=== PATIENT | female | born 2000 | race Caucasian/White ===

== ENCOUNTER 2022-01-27 16:50 | Emergency (ER) | payer OTHER, SELFPAY ==
[2022-01-27 19:18] VITALS: BP 122/65; PULSE 88; RESP 16; TEMP 36; O2SAT 100; BMI 25.7
[2022-01-27 22:06] LABS: Appearance Urine Clear; Color Urine Yellow; Glucose Urine UA Negative (Negative); Leukocyte Esterase Urine Moderate (2+) (Negative); Nitrite Urine Negative (Negative); Specific Gravity - Urine 1.025 (1.005-1.025); UMIC TRIGGER UACC YES; Urine Blood Negative (Negative); Urine Ketones Negative (Negative); Urine Protein Negative (Neg-Trace)
[2022-01-27 22:08] LABS: Bacteria Urine 1+ (None Seen); Hyaline Casts Urine 0-2 /LPF (0-2); UACC Culture Trigger YES
[2022-01-27 22:19] LABS: RBC Urine 0-2 /HPF (0-2)
== END 2022-01-27 22:52 | disposition left against medical advice (07) ==
PROVIDERS: Emergency Provider Emergency Medicine
DX: N89.8 Other specified noninflammatory disorders of vagina (principal)
CPT/HCPCS: 81001; 81003; 87086; 99282

== ENCOUNTER 2022-01-29 11:42 | Outpatient (REF) | payer OTHER, SELFPAY ==
[2022-01-29 18:14] LABS: CT PCR DETECTED (Not Detect.); NG PCR NOT DETECTED (Not Detect.)
[2022-01-30 13:01] LABS: BV Int Neg Control Negative (Negative); BV Int Pos Control Positive (Positive)
== END 2022-01-29 11:43 | disposition home or self-care (01) ==
LOC: HO.LNP 11:42
PROVIDERS: Visit Provider Obstetrics & Gynecology
DX: N90.89 Other specified noninflammatory disorders of vulva and perineum (principal)
CPT/HCPCS: 87480; 87491; 87510; 87591; 87660; 99202

== ENCOUNTER 2022-01-30 14:27 | Outpatient (REF) | payer OTHER, SELFPAY ==
[2022-01-30 15:36] LABS: Syphilis Screen Nonreactive (Nonreactive)
[2022-02-02 08:13] LABS: HBsAGNum1 0.26 S/CO (0.00-0.99); HIV AB/AG Nonreactive (Nonreactive); HIV Num 1 0.07 S/CO (0.00-0.99); Hepatitis B Surface Antigen Negative (Negative); ~Hepatitis C Antibody Nonreactive (Nonreactive)
== END 2022-01-30 14:28 | disposition home or self-care (01) ==
LOC: HO.LAB 14:27
PROVIDERS: Visit Provider Obstetrics & Gynecology
DX: Z11.4 Encounter for screening for human immunodeficiency virus [HIV] (principal); A74.9 Chlamydial infection, unspecified
CPT/HCPCS: 36415; 86780; 86803; 87340; 87389

== ENCOUNTER 2022-02-10 15:08 | Outpatient (REF) | payer OTHER, SELFPAY ==
[2022-02-10 18:42] LABS: CT PCR NOT DETECTED (Not Detect.); NG PCR NOT DETECTED (Not Detect.)
== END 2022-02-10 15:09 | disposition home or self-care (01) ==
LOC: HO.LNP 15:08
PROVIDERS: Visit Provider Obstetrics & Gynecology
DX: A74.9 Chlamydial infection, unspecified (principal); N90.89 Other specified noninflammatory disorders of vulva and perineum; Z20.2 Contact with and (suspected) exposure to infections with a predominantly sexual mode of transmission
CPT/HCPCS: 56605; 87491; 87591; 88305; 99212

== ENCOUNTER → 2022-05-20 14:57 | Outpatient (BNVA) | payer BC, SELFPAY | PROVIDERS: Visit Provider Obstetrics & Gynecology | DX: N90.0 Mild vulvar dysplasia (principal) ==

== ENCOUNTER 2022-11-25 10:08 | Outpatient (REF) | payer BC, SELFPAY ==
[2022-11-26 12:37] LABS: BV Int Neg Control Negative (Negative); BV Int Pos Control Positive (Positive)
[2022-11-26 13:38] LABS: CT PCR NOT DETECTED (Not Detect.); NG PCR NOT DETECTED (Not Detect.)
== END 2022-11-25 10:09 | disposition home or self-care (01) ==
LOC: HO.LAB 10:08
PROVIDERS: Visit Provider Advanced Practice Midwife
DX: Z01.419 Encounter for gynecological examination (general) (routine) without abnormal findings (principal); N89.8 Other specified noninflammatory disorders of vagina; S30.824A Blister (nonthermal) of vagina and vulva, initial encounter; X58.XXXA Exposure to other specified factors, initial encounter; Y93.9 Activity, unspecified; Y92.9 Unspecified place or not applicable; Y99.9 Unspecified external cause status; Z20.2 Contact with and (suspected) exposure to infections with a predominantly sexual mode of transmission
CPT/HCPCS: 0353U; 36415; 87255; 87480; 87510; 87660

== ENCOUNTER 2022-11-25 10:08 | Outpatient (AMB) | payer BC, SELFPAY ==
[2022-11-25 10:12] VITALS: BP 120/80; BMI 26.9
--- NOTE | 2022-11-25 10:12 | MHC.OFFVIS ---
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 Scribed for DAMION Anthony by Brittany Holly medical numerical control operator, on 11/25/2022 at 10:34 am EST. Clinical Orthoptist: Clinical Orthoptist Present (Adela) Allergies No Known Allergies Allergy (Verified 11/25/22 10:12) Is last menstrual period known: Yes Last menstrual period: 11/14/22 HPI HPI Comments History of Present Illness Details She is here with complaints of blisters on labia near past surgery area. Denies any vaginal pain and discharge. Currently sexually active with same partner. Uses condoms as BC. Had Nexplanon in the past with negative results-irregular bleeding. STD testing offered; she accepts. Denies family hx of breast, colon and ovarian cancer. Never had a pap smear/AG. Desires AG today. [facility] Medical History (Updated 11/25/22 @ 10:27 by MORRO Carlin) PCOS (polycystic ovarian syndrome) Social History (Updated 11/25/22 @ 10:27 by MORRO Carlin) Alcohol intake: current Alcohol intake frequency: a few times a month Patient Tobacco Use Status: Never used Tobacco Sexual orientation: Straight/Heterosexual Gender identity: Female Female Reproductive History Menstrual Duration of menses: 3-5 days Date of last menstrual period: 11/14/22 control method: none Total pregnancies: 1 Ab induced: 1 Physical Exam Vital Signs: Last Vital Signs BP 120/80 11/25/22 10:12 BMI result Body Mass Index 26.9 Const General: cooperative, healthy appearing, comfortable, no acute distress, well developed, alert, awake and Physically active Neck Neck: Yes normal visual inspection and Yes full ROM Thyroid: Thyroid normal Lymphatic: no lymphadenopathy noted Chest Chest palpation & inspection: normal inspection of the chest Breast/axilla inspection: normal inspection of the breasts and normal inspection of the axillae Breast/axilla palpation: normal palpation of the breasts and normal palpation of the axillae Resp Effort & Inspection: normal respiratory effort Auscultation: clear to auscultation bilaterally GI Inspection: Yes normal to inspection Palpation (GI): Soft to palpation Percussion: Yes normal to percussion Auscultation: normal bowel sounds Other: skin appears abraided on the left upper inner labial minora at the sulcus, membranous covered-healing tissue, not ulcerative. General: Yes bladder normal to palpation External Female Exam: normal appearance of the urethra and lesion Speculum Exam - Vagina: normal palpation, normal vaginal discharge and lesion Speculum Exam - Cervix: normal appearance of the cervix and normal palpation Bimanual exam- vagina & uterus: normal bimanual exam, normal palpation, uterine size normal, bladder normal to palpation, normal palpation and uterine shape normal Bimanual Exam- Adnexa, other: normal adnexae and no masses Skin Rashes: no rashes Extrem General: Yes normal to inspection and Yes full ROM Right upper extremity: normal to inspection and full ROM Left upper extremity: normal to inspection and full ROM Psych Appearance: grossly normal Speech and movement: Normal speech and movement present Attitude: cooperative Thought process: Normal thought process present Thought content: Normal thought content present Assessment & Plan Assessment & Plan (1) Vaginal lesion: Code(s): N89.8 - Other specified noninflammatory disorders of vagina Plan: Discussed: Current recommendations for pap smears per ASCCP guidelines Breast awareness and periodic self breast exams. Maintaining a healthy lifestyle including a well balanced diet and routine exercise. Encouraged to use condoms for STD and prevention. Encouraged patient to sign up for patient portal. Release of records and PCOS work up. Advised to clean with water, mild soaps to the area, dry well, wear cotton underwear and apply cool cloth if irritated. No sexual intimacy for now. Viral culture, GC/CT and BV panel done today. Await results and treat accordingly. All of her questions and concerns were addressed to the best of my ability and shared decision making. She is agreeable to plan of care. (2) Encounter for well woman exam: Code(s): Z01.419 - Encounter for gynecological examination (general) (routine) without abnormal findings Orders: Orders Bacterial Vaginosis Panel Today N89.8 - Other specified noninflammatory disorders of vagina CT NG by PCR Today N89.8 - Other specified noninflammatory disorders of vagina Pap Smear Today Z01.419 - Encounter for gynecological examination (general) (routine) without abnormal findings Herpes Virus Culture rflx Type Today N89.8 - Other specified noninflammatory disorders of vagina Coding Level of Care Code Est Pt Prev Care 18-39y(98234) Diagnoses Vaginal lesion N89.8 Encounter for well woman exam Z01.419
== END 2022-11-25 10:57 | disposition home or self-care (01) ==
LOC: HO.HWS 10:08
PROVIDERS: Visit Provider Advanced Practice Midwife
DX: Z01.419 Encounter for gynecological examination (general) (routine) without abnormal findings (principal); N89.8 Other specified noninflammatory disorders of vagina
CPT/HCPCS: 99395

== ENCOUNTER 2022-11-25 10:47 | Outpatient (REF) | payer BC, SELFPAY | END 2022-11-25 10:48 | disposition home or self-care (01) | LOC: HO.LNP 10:47 | PROVIDERS: Visit Provider Advanced Practice Midwife | DX: Z01.419 Encounter for gynecological examination (general) (routine) without abnormal findings (principal) | CPT/HCPCS: 88142 ==

== ENCOUNTER 2022-12-08 08:38 | Outpatient (AMB) | payer BC, SELFPAY ==
--- NOTE | 2022-12-08 08:48 | MHC.OFFVIS ---
Intake Vital Signs 12/08/22 08:53 Height 5 ft 3 in Weight 152 lb BMI 26.9 BP 120/70 Intake Visit Reasons: follow up test results Intake Note: The patient agreed to use of a medical billing representative during this encounter. Scribed for DAMION Anthony by Brittany Holly medical billing representative, on 12/08/2022 at 9:00 am EST. Allergies No Known Allergies Allergy (Verified 12/08/22 08:48) Is last menstrual period known: Yes Last menstrual period: 11/14/22 HPI HPI Comments History of Present Illness Details She is here to discuss test results on HSV culture. She has no current symptoms. Reports her partner has HSV and he is on viral suppression therapy. STD blood work offered; she declines due to having it done recently-01/2022-negative. [facility] Medical History PCOS (polycystic ovarian syndrome) Social History Alcohol intake: current Alcohol intake frequency: a few times a month Patient Tobacco Use Status: Never used Tobacco Sexual orientation: Straight/Heterosexual Gender identity: Female Female Reproductive History Menstrual Date of last menstrual period: 11/14/22 Physical Exam Vital Signs: Last Vital Signs BP 120/70 12/08/22 08:53 BMI result Body Mass Index 26.9 Const General: cooperative, healthy appearing, comfortable, no acute distress, well developed, alert and awake Results Reviewed Results Reviewed: HERPES SIMPLEX VIRUS CULTURE W/RFL TO TYPING Micro Number: [id number] Test Status: Final Specimen Source: Not given Specimen Quality: Adequate HSV Culture: Isolated HSV TYPE 2: Isolated HSV TYPE 1: The incidence of HSV 1 infection in the presence of HSV 2 (dual infection) is extremely rare. Therefore, testing for HSV 1 was not performed. Assessment & Plan Assessment & Plan (1) Encounter to discuss test results: Code(s): Z71.2 - Person consulting for explanation of examination or test findings Plan: Discussed: HSV Culture: Isolated HSV TYPE 2: Isolated. Rx sent to pharmacy with instructions. Episodic therapy. Immune system, stressors. Preventative therapy in future if indicated. Follow up AG or prn. All of her questions and concerns were addressed to the best of my ability and shared decision making. She is agreeable to plan of care. Medications: New valacyclovir (Valtrex) take with onset on of symptoms, take for three days, may repeat dosing per episode prn 500 mg PO BID 30 tabs 1RF Coding Level of Care Code Est Pt Level 3 (85519) Diagnoses Encounter to discuss test results Z71.2
[2022-12-08 08:53] VITALS: BP 120/70; BMI 26.9
== END 2022-12-08 09:06 | disposition home or self-care (01) ==
LOC: HO.HWS 08:38
PROVIDERS: Visit Provider Advanced Practice Midwife
DX: Z71.2 Person consulting for explanation of examination or test findings (principal)
CPT/HCPCS: 99213

== ENCOUNTER → 2022-12-08 08:38 | Outpatient (BNVA) | payer BC, SELFPAY | PROVIDERS: Visit Provider Advanced Practice Midwife ==

== ENCOUNTER 2023-05-05 14:42 | Outpatient (REF) | payer BC, SELFPAY ==
[2023-05-06 11:44] LABS: CT PCR NOT DETECTED (Not Detect.); NG PCR NOT DETECTED (Not Detect.)
[2023-05-06 12:18] LABS: BV Int Neg Control Negative (Negative); BV Int Pos Control Positive (Positive)
== END 2023-05-05 14:43 | disposition home or self-care (01) ==
LOC: HO.LAB 14:42
PROVIDERS: Visit Provider Advanced Practice Midwife
DX: Z30.09 Encounter for other general counseling and advice on contraception (principal); Z20.2 Contact with and (suspected) exposure to infections with a predominantly sexual mode of transmission
CPT/HCPCS: 0353U; 87480; 87510; 87660

== ENCOUNTER 2023-05-05 14:42 | Outpatient (AMB) | payer BC, SELFPAY ==
[2023-05-05 14:45] VITALS: BP 120/80; BMI 27.6
--- NOTE | 2023-05-05 14:45 | MHC.OFFVIS ---
Intake Vital Signs 05/05/23 14:45 Height 5 ft 3 in Weight 156 lb BMI 27.6 BP 120/80 Intake Visit Reasons: control consult chaya Chapman Allergies No Known Allergies Allergy (Verified 05/05/23 14:45) Is last menstrual period known: Yes Last menstrual period: 04/08/23 HPI HPI Comments History of Present Illness Details Is here for control consult. She is interested in the ParaGard IUD. She is currently having regular cycles while on metformin. History of PCOS. She reports her periods are heavy and painful at times and she is reconsidering the brand of IUD to something different. [facility] Medical History PCOS (polycystic ovarian syndrome) Social History Alcohol intake: current Alcohol intake frequency: a few times a month Patient Tobacco Use Status: Never used Tobacco Sexual orientation: Straight/Heterosexual Gender identity: Female Female Reproductive History Menstrual Duration of menses: 3-5 days Date of last menstrual period: 04/08/23 Review of Systems Const All systems reviewed & are unremarkable except as noted in HPI and below Physical Exam Vital Signs: Last Vital Signs BP 120/80 05/05/23 14:45 BMI result Body Mass Index 27.6 Const General: cooperative, healthy appearing and no acute distress Orientation/consciousness: patient oriented x3 GI Inspection: Yes normal to inspection Palpation (GI): Soft to palpation and Other GI palpation findings present (Nontender) Rectal Exam - Female: visual inspection normal General: Yes bladder normal to palpation External Female Exam: normal appearance of the urethra Speculum Exam - Vagina: normal appearance of the vagina, normal palpation and normal vaginal discharge Speculum Exam - Cervix: normal appearance of the cervix and normal palpation Bimanual exam- vagina & uterus: normal bimanual exam, normal palpation, uterine size normal, bladder normal to palpation, normal palpation, uterine shape normal and non-tender Bimanual Exam- Adnexa, other: normal adnexae Neuro General: patient oriented x3 Assessment & Plan Assessment & Plan (1) control counseling: Code(s): Z30.09 - Encounter for other general counseling and advice on contraception Plan Reviewed options for control with the [facility] efficacy chart. We discussed various types of IUD and she has decided to go with the Kyleena for the benefit of menstrual cycle control, lower hormone it is. Use of Ibuprofen 600 mg (3-200mg tablets), with food 1 hour before the procedure. Kyleena booklet given. All of her questions and concerns were addressed to the best of my ability and shared decision making. She is agreeable to the plan of care. Return to the office in the 1st 5 days of her next menstrual cycle, and no unprotected intimacy. Use of condoms always. Orders: Orders Bacterial Vaginosis Panel Today Z20.2 - Contact with and (suspected) exposure to infections with a predominantly sexual mode of transmission CT NG by PCR Today Z20.2 - Contact with and (suspected) exposure to infections with a predominantly sexual mode of transmission Coding Level of Care Code Est Pt Level 3 (42720) Diagnoses control counseling Z30.09
== END 2023-05-05 15:11 | disposition home or self-care (01) ==
LOC: HO.HWS 14:42
PROVIDERS: Visit Provider Advanced Practice Midwife
DX: Z30.09 Encounter for other general counseling and advice on contraception (principal)
CPT/HCPCS: 99213

== ENCOUNTER 2023-05-05 15:06 | Outpatient (REF) | payer BC, SELFPAY | END 2023-05-05 15:07 | disposition home or self-care (01) | LOC: HO.LNP 15:06 | PROVIDERS: Visit Provider Advanced Practice Midwife | DX: Z13.89 Encounter for screening for other disorder (principal) ==

== ENCOUNTER 2023-06-08 15:20 | Outpatient (AMB) | payer BC, SELFPAY ==
[2023-06-08 15:25] VITALS: BP 116/72; BMI 28.2
--- NOTE | 2023-06-08 15:25 | MHC.OFFVIS ---
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 She is currently on her menstrual cycle. [facility] Medical History PCOS (polycystic ovarian syndrome) Social History Alcohol intake: current Alcohol intake frequency: a few times a month Patient Tobacco Use Status: Never used Tobacco Sexual orientation: Straight/Heterosexual Gender identity: Female Female Reproductive History Menstrual Date of last menstrual period: 06/07/23 Review of Systems Const All systems reviewed & are unremarkable except as noted in HPI and below Physical Exam Vital Signs: Last Vital Signs BP 116/72 06/08/23 15:25 BMI result Body Mass Index 28.2 Const General: cooperative, healthy appearing and no acute distress Orientation/consciousness: patient oriented x3 GI Inspection: Yes normal to inspection Palpation (GI): Soft to palpation and Other GI palpation findings present (Nontender) Rectal Exam - Female: visual inspection normal General: Yes bladder normal to palpation External Female Exam: normal appearance of the urethra Speculum Exam - Vagina: normal appearance of the vagina, normal palpation and normal vaginal discharge Speculum Exam - Cervix: normal appearance of the cervix and normal palpation Bimanual exam- vagina & uterus: normal bimanual exam, normal palpation, uterine size normal, bladder normal to palpation, normal palpation, uterine shape normal, non-tender and other (RV) Bimanual Exam- Adnexa, other: normal adnexae and Other (Fullness to the right adnexa possible loop of bowel verses cyst ) Neuro General: patient oriented x3 Office Procedures IUD Insert/Removal Details Details: The patient is here today for a Kyleena IUD insertion. She was counseled on the side effects including: menstrual cycle changes, pain, infection, bleeding, or expulsion. Risks of injury to the vagina, cervix, uterus, tubes, ovaries, bowel, bladder, and any adjacent tissue, resulting in nerve damage, scarring, and pain. Risks complications for the procedure that may require other test including ultrasounds, Xray, CT or MRI scan, surgery, anesthesia, blood transfusion. A urine test was completed and was negative. She was consented for the IUD insertion and has signed the consent form. All questions were answered. IUD Insertion: The patient was placed in the dorsal lithotomy position and a sterile speculum was inserted. The procedure was completed under aseptic technique. The cervix was cleansed with a Betadine solution x 3 swabs. A single toothed tenaculum was applied to the cervix for stabilization, and the uterus was sounded to 8 cm. The device was inserted and released with a gentle motion. Bleeding from the tenaculum sites and the procedure were minimal. The strings were trimmed to 3cm. All of the equipment was removed and the bimanual was normal, no tip was palpable at the cervical os. The patient tolerated the procedure well and left the office in good condition. Post IUD Insertion Care: There may be some post insertion bleeding for several days that is usually light and can turn to a light brown or pink in color. Mild cramping may occur. Nothing in the vagina including: tampons, douching or intimacy for several days. You may take an over the counter mild analgesia like Tylenol or Advil (if no allergies), per the manufacturers recommendations on dosing and frequency. Follow the directions completely. Call the office if any: fever (over 100.4), flu like symptoms, abdominal pain, worsening cramping not resolved with over the counter medications, foul smelling vaginal odor, signs of infected appearing discharge, or heavy bleeding. Use a condom for a back up method if indicated for 7 days. Always use a condom for STI prevention; IUD's are not protective against STD's. Return to the office in 4-6 weeks for IUD recheck. This note is constructed using voice recognition software. While every effort has been made to ensure accuracy, buckshot swage operator errors may have been included. [id number]-TSM Insertion Procedure code (CPT) selection complete Office Meds Kyleena 17.5 mcg/24 hrs (5yrs) 19.5mg intrauterine device Performing Provider: Kitty Zavala CNM Performing Location: [facility] [place] [facility] Administered by: MORRO Carlin on 06/08/23 15:53 Dose Route Admin Location Dispensed Lot Number Expiration Date ND Auto Emissions Technician 1 device intrauterine 1 device [id number] 05/16/25 31789-268-76 [employer] Results AMB Test Urine AMB Test Urine Negative Last Edit by MORRO Carlin on 06/08/23 15:36 Results Reviewed Results Reviewed: Laboratory Last Values Tst Clinic Negative 06/08/23 15:36 Assessment & Plan Assessment & Plan (1) Encounter for IUD insertion: Code(s): Z30.430 - Encounter for insertion of intrauterine contraceptive device Plan See procedure notes. Plan ultrasound to check the right adnexa. Follow-up for test results. Reviewed warnings and when to call or seek emergency care in the ED. Orders: Orders AMB HCG Urine Test Today Z32.02 - Encounter for test, result negative AMB IUD Insertion/Removal - Practice Supplied Today Z30.430 - Encounter for insertion of intrauterine contraceptive device US pelvic and transvaginal Today N94.9 - Unspecified condition associated with female genital organs and menstrual cycle, Z30.431 - Encounter for routine checking of intrauterine contraceptive device Coding Level of Care Code Procedure Only Diagnoses Encounter for IUD insertion Z30.430 CPT Codes Details - CPT: 53811-ARL Insertion ([id number])
== END 2023-06-09 08:59 | disposition home or self-care (01) ==
LOC: HO.HWS 15:20
PROVIDERS: Visit Provider Advanced Practice Midwife
DX: Z30.430 Encounter for insertion of intrauterine contraceptive device (principal)
CPT/HCPCS: 58300

== ENCOUNTER → 2023-06-08 15:20 | Outpatient (BNVA) | payer BC, SELFPAY | PROVIDERS: Visit Provider Advanced Practice Midwife | DX: Z30.430 Encounter for insertion of intrauterine contraceptive device (principal) | CPT/HCPCS: 58300; 81025; J7296 ==

== ENCOUNTER 2023-06-09 12:54 | Outpatient (REF) | payer BC, SELFPAY ==
--- NOTE | ~2023-06-09 | US_ITS ---
EXAMINATION: US PELVIS COMPLETE TRANSVAGINAL PELVIC ULTRASOUND: CLINICAL INFORMATION: Additional Notes/Special Instructions right sided fullness : COMPARISON: None TECHNIQUE: Transabdominal imaging initially performed. For more definitive evaluation of the endometrium and ovaries, transvaginal technique was employed. FINDINGS: Uterus is anteverted measuring 7.7 x 4.1 x 4.2cm. Endometrial thickness is difficult to identify with IUD in place. Right ovary measures 5.8 x 2.5 x 4.4 cm for a volume of 33.8 mL. 4.1 x 2.1 x 3.6 cm right ovarian cyst is seen. The left ovary measures 3.5 x 2.2 x 1.6 cm for a volume of 6.5 mL. There is no pelvic free fluid. US/US pelvic and transvaginal IMPRESSION: 4.1 cm right ovarian cyst.
== END 2023-06-09 12:55 | disposition home or self-care (01) ==
LOC: HO.HMGCX 12:54
PROVIDERS: Visit Provider Advanced Practice Midwife
DX: Z30.431 Encounter for routine checking of intrauterine contraceptive device (principal); N94.9 Unspecified condition associated with female genital organs and menstrual cycle
CPT/HCPCS: 76830; 76856

== ENCOUNTER 2023-06-16 14:18 | Outpatient (AMB) | payer BC, SELFPAY ==
[2023-06-16 14:21] VITALS: BP 100/60; BMI 28.2
--- NOTE | 2023-06-16 14:21 | A.OFFVIS_ITS ---
Intake Vital Signs 06/16/23 14:21 Height 5 ft 3 in Weight 159 lb BMI 28.2 BP 100/60 Intake Visit Reasons: ultra sound follow up/iud check Allergies No Known Allergies Allergy (Verified 06/08/23 15:26) HPI HPI Comments History of Present Illness Details Patient is here for a ultrasound follow-up for a right ovarian cyst, and a post IUD insertion check. She reports the right adnexa region is not causing any discomfort. 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 She feels well and has no concerns today [facility] Medical History PCOS (polycystic ovarian syndrome) Social History Alcohol intake: current Alcohol intake frequency: a few times a month Patient Tobacco Use Status: Never used Tobacco Sexual orientation: Straight/Heterosexual Gender identity: Female Review of Systems Const All systems reviewed & are unremarkable except as noted in HPI and below Physical Exam Vital Signs: Last Vital Signs BP 100/60 06/16/23 14:21 BMI result Body Mass Index 28.2 Const General: cooperative, healthy appearing and no acute distress Orientation/consciousness: patient oriented x3 GI Inspection: Yes normal to inspection Palpation (GI): Soft to palpation and Other GI palpation findings present (Nontender) Rectal Exam - Female: visual inspection normal General: Yes bladder normal to palpation External Female Exam: normal appearance of the urethra Speculum Exam - Vagina: normal appearance of the vagina, normal palpation and normal vaginal discharge Speculum Exam - Cervix: normal appearance of the cervix and normal palpation Bimanual exam- vagina & uterus: normal bimanual exam, normal palpation, uterine size normal, bladder normal to palpation, normal palpation, uterine shape normal, non-tender and other (Normal IUD strings) Bimanual Exam- Adnexa, other: normal adnexae and Other (No fullness noted in the right adnexa) Neuro General: patient oriented x3 Results Reviewed Results Reviewed: [facility] [address] [place] [address] [place] [address] Ultrasound Report Signed Patient: Nadege Barnes MR#: [id number] : 2000 Acct:[id number] Age/Sex: 23 / F ADM Date: 06/09/23 Loc: HO.[facility] Attending Dr: Kitty Zavala CNM Ordering Physician: Kitty Zavala CNM Date of Service: 06/09/23 Procedure(s): US pelvic and transvaginal Accession Number(s): [id number] cc: Kitty Zavala CNM~ EXAMINATION: US PELVIS COMPLETE TRANSVAGINAL PELVIC ULTRASOUND: CLINICAL INFORMATION: Additional Notes/Special Instructions right sided fullness : COMPARISON: None TECHNIQUE: Transabdominal imaging initially performed. For more definitive evaluation of the endometrium and ovaries, transvaginal technique was employed. FINDINGS: Uterus is anteverted measuring 7.7 x 4.1 x 4.2cm. Endometrial thickness is difficult to identify with IUD in place. Right ovary measures 5.8 x 2.5 x 4.4 cm for a volume of 33.8 mL. 4.1 x 2.1 x 3.6 cm right ovarian cyst is seen. The left ovary measures 3.5 x 2.2 x 1.6 cm for a volume of 6.5 mL. There is no pelvic free fluid. US/US pelvic and transvaginal IMPRESSION: 4.1 cm right ovarian cyst. Dictated By: Kristen Lacy MD Signed By: <Electronically signed by Kristen Lacy MD in OV> 06/09/23 1541 DD/ 1321 TD/TT: Senior Clinical Project Manager: Assessment & Plan Assessment & Plan (1) Right ovarian cyst: Code(s): N83.201 - Unspecified ovarian cyst, right side (2) Encounter to discuss test results: Code(s): Z71.2 - Person consulting for explanation of examination or test findings (3) IUD surveillance: Code(s): Z30.431 - Encounter for routine checking of intrauterine contraceptive device Plan Discussed: Ovarian cyst is uncomplicated, this is considered benign and most cysts resolve on their own. If there is any pain on the right side to notify the office immediately for further evaluation. Advised that ovarian cysts can be produced with a progesterone IUD and most resolve on their own. IUD strings are normal length, instructed to check if wanting to but not necessary. Menstrual cycles will reduce in volume and may skip entirely that is normal. Schedule her annual for November of 2023. All of her questions and concerns were addressed to the best of my ability and shared decision making. She is agreeable to the plan of care. Coding Level of Care Code Est Pt Level 3 (83314) Diagnoses Right ovarian cyst N83.201 Encounter to discuss test results Z71.2 IUD surveillance Z30.431
== END 2023-06-16 14:46 | disposition home or self-care (01) ==
PROVIDERS: Visit Provider Advanced Practice Midwife
DX: N83.201 Unspecified ovarian cyst, right side (principal); Z71.2 Person consulting for explanation of examination or test findings; Z30.431 Encounter for routine checking of intrauterine contraceptive device
CPT/HCPCS: 99213

== ENCOUNTER → 2023-06-16 14:18 | Outpatient (BNVA) | payer BC, SELFPAY | PROVIDERS: Visit Provider Advanced Practice Midwife ==

== ENCOUNTER 2024-04-11 08:16 | Outpatient (AMB) | payer BC, SELFPAY ==
[2024-04-11 08:28] VITALS: BP 116/72; BMI 31.5
--- NOTE | 2024-04-11 08:28 | MHC.OFFVIS ---
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 Doing well with concerns: She has been going to the gym and eating healthy in not able to lose weight despite being on metformin, with the additional facial hair growth. She noticed the change after the IUD was placed and was requesting the IUD removal today. She plans to use condoms for now and be hormone free. Currently seen by [facility] for functional medicine who treats her PCOS with the metformin. Regular monthly menses. Currently is sexually active. She denies vaginal itching and irritation. STI screening offered; she accepts. She tries to eat healthy and stays active with exercise. Denies family history of breast, ovarian or colon cancer. Last pap smear 2022, negative. History of REAL 1. She does not have any concerns in the vulvar region has not noticed any lumps or discoloration. She was counseled regarding the removal of her IUD. She was consented for the procedure along with anticipatory guidance for the removal and the consents form was signed. She desires to proceed with the IUD removal. [facility] Medical History PCOS (polycystic ovarian syndrome) Social History Alcohol intake: current Alcohol intake frequency: a few times a month Patient Tobacco Use Status: Never used Tobacco Sexual orientation: Straight/Heterosexual Gender identity: Female Female Reproductive History Menstrual Age of Menarche: 8 control method: progestin IUCD Total pregnancies: 1 Full term: 0 Ab induced: 1 History of abnormal pap smear: No History of STI: Yes Review of Systems Const All systems reviewed & are unremarkable except as noted in HPI and below Reports as per HPI Eyes Reports no additional complaints ENT Reports no additional complaints Card Reports no additional complaints Resp Reports no additional complaints GI Reports as per HPI and Reports no additional complaints Reports as per HPI Musc Reports no additional complaints Skin/Breast Reports as per HPI Neuro Reports no additional complaints Psych Reports no additional complaints Endo Reports no additional complaints Mauri/Lymph Reports no additional complaints Aller/Immun Reports no additional complaints Physical Exam Vital Signs: BMI result Body Mass Index 31.5 Const General: cooperative, healthy appearing, no acute distress, well developed and alert Orientation/consciousness: patient oriented x3 HEENT Head: Yes normal to inspection Eyes General: appearance normal, both eyes and all related structures Neck Neck: Yes normal visual inspection Thyroid: Thyroid normal Chest Chest palpation & inspection: normal inspection of the chest and other (no puckering, dimpling, peau de orange, retraction, discharge, masses) Breast/axilla inspection: normal inspection of the breasts Breast/axilla palpation: normal palpation of the breasts Resp Effort & Inspection: normal respiratory effort GI Inspection: Yes normal to inspection Palpation (GI): Soft to palpation Rectal Exam - Female: deferred Other: No vulvar lesions, skin discolorations, or excoriations on inspection. General: Yes bladder normal to palpation External Female Exam: normal external appearance and normal appearance of the urethra Speculum Exam - Vagina: normal appearance of the vagina, normal palpation, normal vaginal discharge and vaginal bleeding (Small amount) Speculum Exam - Cervix: normal appearance of the cervix, normal palpation and Other cervical findings present (IUD strings at the os) Bimanual exam- vagina & uterus: normal bimanual exam, normal palpation, uterine size normal, bladder normal to palpation, normal palpation and non-tender Bimanual Exam- Adnexa, other: no masses OB/external & speculum: vaginal bleeding (Small amount) Skin General skin exam: no rashes or lesions noted Rashes: no rashes Neuro General: patient oriented x3 Cognition (Neuro): normal cognition Extrem General: Yes normal to inspection Psych Attitude: cooperative Thought process: Normal thought process present Office Procedures Contraception Insert/Removal Details Details: IUD Removal Procedure: The patient was placed in the dorsal lithotomy position. A speculum was inserted vaginally and the cervix and strings were visualized at the os. A ring forcep was utilized, and the patient was asked to give a deep cough while the strings were grasped and gently tugged at the same time, removing the IUD device intact. Minimal bleeding was observed. All of the equipment was removed. The patient tolerated the procedure well and left the office in good condition. [address] - Removal Assessment & Plan Assessment & Plan (1) Encounter for well woman exam with routine gynecological exam: Code(s): Z01.419 - Encounter for gynecological examination (general) (routine) without abnormal findings Category: Medical (2) Encounter for IUD removal: Code(s): Z30.432 - Encounter for removal of intrauterine contraceptive device (3) PCOS (polycystic ovarian syndrome): Code(s): E28.2 - Polycystic ovarian syndrome Plan Discussed: Current recommendations for pap smears per ASCCP guidelines. Breast awareness and periodic breast exams. Maintain a healthy lifestyle including a well balanced diet and routine exercise. Use condoms for STI and prevention. Follow up with [facility] to discuss treatment for the PCOS consider spironolactone. Monitor cycles if irregular or prolonged to call the office for a follow up. Report any external vulvar lesions or discoloration. Patient verbalizes understanding and agrees to the plan of care. She was given opportunity to ask questions and all questions were answered to the best of my ability. 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 This note is constructed using voice recognition software. While every effort has been made to ensure accuracy, raise drill operator errors may have been included. Medications: Refilled valacyclovir (Valtrex) take with onset on of symptoms, take for three days, may repeat dosing per episode prn 500 mg PO BID 30 tabs 1RF Coding Level of Care Code Est Pt Prev Care 18-39y(33866) Diagnoses Encounter for well woman exam with routine gynecological exam Z01.419 Encounter for IUD removal Z30.432 PCOS (polycystic ovarian syndrome) E28.2 CPT Codes Details - Contraception: 73370 - Removal ([id number]) Comment Add modifier due to IUD removal
== END 2024-04-11 09:00 | disposition home or self-care (01) ==
PROVIDERS: Visit Provider Advanced Practice Midwife
DX: Z01.419 Encounter for gynecological examination (general) (routine) without abnormal findings (principal); E28.2 Polycystic ovarian syndrome; Z30.432 Encounter for removal of intrauterine contraceptive device
CPT/HCPCS: 58301; 99395

== ENCOUNTER 2024-04-11 08:16 | Outpatient (REF) | payer BC, SELFPAY ==
[2024-04-11 15:39] LABS: Bacterial Vaginosis PCR NEGATIVE (Negative); Candida Group PCR NOT DETECTED (Not Detect); Candida glab krusei PCR NOT DETECTED (Not Detect); Trichomonas vaginalis PCR NOT DETECTED (Not Detect)
[2024-04-11 16:10] LABS: CT PCR NOT DETECTED (Not Detect.); NG PCR NOT DETECTED (Not Detect.)
== END 2024-04-11 08:17 | disposition home or self-care (01) ==
LOC: HO.LNP 08:16
PROVIDERS: Visit Provider Advanced Practice Midwife
DX: Z30.432 Encounter for removal of intrauterine contraceptive device (principal); E28.2 Polycystic ovarian syndrome
CPT/HCPCS: 0352U; 58301; 87491; 87591

== ENCOUNTER 2025-04-18 08:05 | Outpatient (AMB) | payer BC, SELFPAY ==
--- NOTE | 2025-04-18 08:07 | MHC.OFFVIS ---
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 Hx. pcos. Uses calendar method for prevention. Regular monthly menses HMB 2/4d. Currently is sexually active. She denies vaginal itching or irritation. STI screening offered; she accepts. She tries to eat healthy and stays active with exercise. Concerned re: pre diabetes, has increased FBS-111, has a Endocrine appt. 05/2025. Labs on portal view: 03/05/25-13.3/39.5, Vit D-21.4. Last pap smear 2022, negative. [facility] Medical History PCOS (polycystic ovarian syndrome) Social History Alcohol intake: current Alcohol intake frequency: a few times a month Patient Tobacco Use Status: Never used Tobacco Current occupation: [employer] Sexual orientation: Straight/Heterosexual Gender identity: Female Female Reproductive History Menstrual Age of Menarche: 8 Duration of menses: 3-5 days Date of last menstrual period: 03/27/25 control method: none Total pregnancies: 1 Ab induced: 1 Date of last pap smear: 11/25/22 History of abnormal pap smear: No History of STI: Yes Review of Systems Const All systems reviewed & are unremarkable except as noted in HPI and below Reports as per HPI Eyes Reports no additional complaints ENT Reports no additional complaints Card Reports no additional complaints Resp Reports no additional complaints GI Reports as per HPI and Reports no additional complaints Reports as per HPI Musc Reports no additional complaints Skin/Breast Reports as per HPI Neuro Reports no additional complaints Psych Reports no additional complaints Endo Reports no additional complaints Mauri/Lymph Reports no additional complaints Aller/Immun Reports no additional complaints Physical Exam Vital Signs: Last Vital Signs BP 122/68 04/18/25 08:08 Const General: cooperative, healthy appearing, no acute distress, well developed and alert Orientation/consciousness: patient oriented x3 HEENT Head: Yes normal to inspection Eyes General: appearance normal, both eyes and all related structures Neck Neck: Yes normal visual inspection Thyroid: Thyroid normal Chest Chest palpation & inspection: normal inspection of the chest and other (no puckering, dimpling, peau de orange, retraction, discharge, masses) Breast/axilla inspection: normal inspection of the breasts Breast/axilla palpation: normal palpation of the breasts Resp Effort & Inspection: normal respiratory effort GI Inspection: Yes normal to inspection Palpation (GI): Soft to palpation Rectal Exam - Female: deferred General: Yes bladder normal to palpation External Female Exam: normal external appearance and normal appearance of the urethra Speculum Exam - Vagina: normal appearance of the vagina, normal palpation and normal vaginal discharge Speculum Exam - Cervix: normal appearance of the cervix and normal palpation Bimanual exam- vagina & uterus: normal bimanual exam, normal palpation, uterine size normal, bladder normal to palpation, normal palpation and non-tender Bimanual Exam- Adnexa, other: no masses Skin General skin exam: no rashes or lesions noted Rashes: no rashes Neuro General: patient oriented x3 Cognition (Neuro): normal cognition Extrem General: Yes normal to inspection Psych Attitude: cooperative Thought process: Normal thought process present Assessment & Plan Assessment & Plan (1) Encounter for well woman exam with routine gynecological exam: Code(s): Z01.419 - Encounter for gynecological examination (general) (routine) without abnormal findings Category: Medical Plan Discussed: Current recommendations for pap smears per ASCCP guidelines. Breast awareness and periodic breast exams. Maintain a healthy lifestyle including a well balanced diet and routine exercise. Consider folic acid supplementation. Plans to take multivitamins. Monitor menses if any prolonged heavy cycles to report to the office for further evaluation. Patient verbalizes understanding and agrees to the plan of care. She was given opportunity to ask questions and all questions were answered to the best of my ability. 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 This note is constructed using voice recognition software. While every effort has been made to ensure accuracy, software program manager errors may have been included. Coding Level of Care Code Est Pt Prev Care 18-39y(11937) Diagnoses Encounter for well woman exam with routine gynecological exam Z01.419
[2025-04-18 08:08] VITALS: BP 122/68; BMI 29.5
== END 2025-04-18 08:39 | disposition home or self-care (01) ==
PROVIDERS: Visit Provider Advanced Practice Midwife
DX: Z01.419 Encounter for gynecological examination (general) (routine) without abnormal findings (principal)
CPT/HCPCS: 99395; 99459